=== PATIENT | female | born 2000 | race Caucasian/White ===

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

== ENCOUNTER 2019-08-13 20:48 | Emergency (ER) | payer BC, OTHER ==
[2019-08-13] MEDS ORDERED: SODIUM CHLORIDE 0.9% 1000ML 1,000 ML IVS ONE (20:58)
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
[2019-08-13] MEDS ORDERED: POTASSIUM CHLORIDE ELIXIR 20 MEQ/15 ML UD PO ONE (23:46)
[2019-08-13 23:47] VITALS: TEMP 97.1; O2SAT 99
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
[2019-08-14 00:11] VITALS: BP 118/71
== END 2019-08-14 00:13 | disposition home or self-care (01) ==
LOC: ER 20:48
DX: S16.1XXA Strain of muscle, fascia and tendon at neck level, initial encounter (principal); S39.012A Strain of muscle, fascia and tendon of lower back, initial encounter; E87.6 Hypokalemia; T14.8XXA Other injury of unspecified body region, initial encounter; M25.511 Pain in right shoulder; V40.0XXA Car driver injured in collision with pedestrian or animal in nontraffic accident, initial encounter; Y92.410 Unspecified street and highway as the place of occurrence of the external cause
CPT/HCPCS: 36415; 71045; 72125; 73030; 74176; 80053; 81001; 82150; 83690; 84703; 85025; J7030